=== PATIENT | female | born 1985 | race Two or more races ===

== ENCOUNTER 2018-12-30 10:06 | Inpatient (IN) | payer MEDICAID, OTHER ==
[~2018-12-30] VITALS: Ht 160 cm; Wt 61.2 kg
[2018-12-30 12:00] LABS: CHLORIDE 105 mEq/L (98-107)
[2018-12-30 12:01] LABS: BASOPHILS % 0.5 % (0.0-2.0); EOSINOPHILS % 0.6 % (0.0-5.0); HEMATOCRIT. 38.7 % (36.0-48.0); HEMOGLOBIN. 13.1 g/dL (12.0-16.0); LYMPHOCYTES % 25.2 % (20.0-50.0); MEAN CORPUSCULAR VOLUME 94.5 fL (81.0-99.0); MEAN PLATELET VOLUME 8.3 fl (7.4-10.4); MONOCYTES % 6.1 % (2.0-8.0); NEUTROPHILS % 67.6 % (40.0-76.0); PLATELET 251 x1000/uL (130-400); RED BLOOD CELL COUNT 4.09 mill/uL (4.2-5.4); RED CELL DISTRIBUTION WIDTH 14.1 % (11.6-14.6)
[2018-12-30 12:23] LABS: B-HCG QUANTITATIVE 9912 mIU/mL (<3)
[2018-12-30 12:56] LABS: CLARITY URINE TURBID (CLEAR); COLOR URINE YELLOW (YELLOW); KETONES URINE TRACE (NEGATIVE); LEUKOCYTE ESTERASE URINE TRACE (NEGATIVE); NITRITE URINE NEGATIVE (NEGATIVE); OCCULT BLOOD URINE 3+ (NEGATIVE); PROTEIN URINE NEGATIVE (NEGATIVE); SPECIFIC GRAVITY URINE 1.023 (1.005-1.030); UROBILINOGEN URINE 0.2 E.U./dL (0.2-1.0)
[2018-12-30 16:00] VITALS: BP 99/72
[2018-12-30 16:19] VITALS: BP 99/72
[2018-12-30] MEDS ORDERED: PREN-176 MT (17:29)
[2018-12-30] MEDS ORDERED: CALC-1042 MT (17:30)
[2018-12-30] MEDS ORDERED: FERR-71 MT (17:30)
[2018-12-30] MEDS ORDERED: ASPI-1079 PO (17:30)
[2018-12-30 20:00] VITALS: BP 106/70
[2018-12-31] VITALS: BP 97/64
[2018-12-31 04:00] VITALS: BP 96/62
[2018-12-31 08:00] VITALS: BP 110/74
[2018-12-31] MEDS: PRENATAL VIT/FE FUMARATE/FA TABLET PO SCH (09:47)
[2018-12-31] MEDS: FERROUS SULFATE 325MG TABLET PO SCH (09:47)
[2018-12-31 12:00] VITALS: BP 93/62
[2018-12-31 16:00] VITALS: BP 120/63
[2018-12-31 20:00] VITALS: BP 93/65
[2019-01-01] VITALS: BP 130/66
[2019-01-01 04:00] VITALS: BP 95/56
[2019-01-01] MEDS: FERROUS SULFATE 325MG TABLET PO SCH (09:01)
[2019-01-01] MEDS: PRENATAL VIT/FE FUMARATE/FA TABLET PO SCH (09:01)
[2019-01-01 20:00] VITALS: BP 101/69
== END 2019-01-01 21:20 | disposition home or self-care (01) | DRG 563 ==
LOC: ER 10:06 → 6EST 14:27 → EDBEDREQTM 14:32 → EDBEDREQ 14:32 → ENRESERV 15:52
PROVIDERS: ADMIT Obstetrics & Gynecology; ATTEND Obstetrics & Gynecology
DX: O20.0 Threatened abortion (principal); Z3A.20 20 weeks gestation of pregnancy; Z79.899 Other long term (current) drug therapy; Z79.82 Long term (current) use of aspirin
CPT/HCPCS: 36415; 76805; 81003; 84702; 86850; 86900; 99285